=== PATIENT | female | born 1985 | race African-American/Black ===

== ENCOUNTER 2017-12-23 11:28 | Emergency (ER) | payer SELFPAY ==
[2017-12-23 12:48] LABS: URINE BLOOD (Dip) POC 1+ (NEGATIVE); URINE GLUCOSE (Dip) POC Negative (NEGATIVE); URINE KETONES (Dip) POC Trace (NEGATIVE); URINE LEUKOCYTE EST (Dip) POC Negative (NEGATIVE); URINE NITRITE (Dip) POC Negative (NEGATIVE); URINE TOTAL PROTEIN POC Negative (NEGATIVE)
== END 2017-12-23 14:19 | disposition home or self-care (01) ==
LOC: FTE 11:28
DX: Z32.02 Encounter for pregnancy test, result negative (principal); Z87.891 Personal history of nicotine dependence
CPT/HCPCS: 81003; 99282

== ENCOUNTER 2017-12-31 11:49 | Emergency (ER) | payer SELFPAY | END 2017-12-31 15:34 | disposition left against medical advice (07) | LOC: FTE 11:49 | DX: Z53.21 Procedure and treatment not carried out due to patient leaving prior to being seen by health care provider (principal) ==